=== PATIENT | male | born 1985 | race Hispanic/Latino ===

== ENCOUNTER 2018-07-10 08:11 | Emergency (ER) | payer SELFPAY ==
[~2018-07-10] VITALS: Ht 160 cm; Wt 70.0 kg
[~2018-07-10 08:11] MED LIST: LORATADINE10 M1 PO; NO
[2018-07-10] MEDS ORDERED: IMODIUM A-D2 M3 PO (08:34)
[2018-07-10 08:50] VITALS: BP 153/107
== END 2018-07-10 08:50 | disposition home or self-care (01) | DRG 392 ==
LOC: ED 08:11
DX: K52.9 Noninfective gastroenteritis and colitis, unspecified (principal); F17.200 Nicotine dependence, unspecified, uncomplicated